=== PATIENT | male | born 1960 | race Caucasian/White ===

== ENCOUNTER 2018-08-29 16:13 | Emergency (ER) | payer SELFPAY ==
[~2018-08-29] VITALS: Ht 180.3 cm; Wt 86.3 kg
[2018-08-29 16:31] VITALS: BP 167/111
--- NOTE | 2018-08-29 17:17 | NUR ---
Patient given discharge instructions and they have confirmed that they understand the instructions. Patient ambulatory with steady gait.
== END 2018-08-29 17:19 | disposition home or self-care (01) ==
LOC: ED 17:13
DX: S00.572A Other superficial bite of oral cavity, initial encounter (principal); K12.2 Cellulitis and abscess of mouth; Z91.010 Allergy to peanuts; W50.3XXA Accidental bite by another person, initial encounter; Y93.89 Activity, other specified; Y92.89 Other specified places as the place of occurrence of the external cause; Y99.8 Other external cause status
CPT/HCPCS: 99283